=== PATIENT | female | born 1975 | race African-American/Black ===

== ENCOUNTER 2017-10-21 14:08 | Inpatient (IN) | payer SELFPAY ==
[~2017-10-21] VITALS: Ht 320 cm; Wt 44.9 kg
[2017-10-21] MEDS ORDERED: ONDANSETRON HCL 4MG/2ML VIAL IV STA (14:39)
[2017-10-21] MEDS ORDERED: FAMOTIDINE 20MG/2ML VIAL IV STA (14:39)
[2017-10-21] MEDS ORDERED: SODIUM CHLORIDE 0.9% 1,000 ML IV ONE ×2 (14:39→14:45)
[2017-10-21] MEDS ORDERED: LORAZEPAM 2MG/ML CPJ IV ONE (14:45)
[2017-10-21 15:38] LABS: CHLORIDE 100 mEq/L (98-107); HEMATOCRIT. 45.2 % (36.0-48.0); HEMOGLOBIN. 14.8 g/dL (12.0-16.0); MEAN CORPUSCULAR HEMOGLOBIN 36.9 pg (28.0-32.0); MEAN CORPUSCULAR VOLUME 112.6 fL (81.0-99.0); MEAN PLATELET VOLUME 7.7 fl (7.4-10.4); PLATELET 245 x1000/uL (130-400); RED BLOOD CELL COUNT 4.01 mill/uL (4.2-5.4); RED CELL DISTRIBUTION WIDTH 18.3 % (11.6-14.6)
[2017-10-21 15:48] LABS: CARBON DIOXIDE 10 mEq/L (21-32)
[2017-10-21 17:06] LABS: PLATELET ESTIMATE NORMAL
[2017-10-21] MEDS ORDERED: NA PHOS,M-B/NA PHOS,DI-BA ENEMA 118ML PR PRN (19:45)
[2017-10-21] MEDS ORDERED: MAGNESIUM/ALUMINUM HYDROXIDE/SIMETHICONE 30ML UDC PO PRN (19:45)
[2017-10-21] MEDS ORDERED: IPRATROPIUM/ALBUTEROL 0.5-3(2.5)MG/3ML NEB INH PRN (19:45)
[2017-10-21] MEDS ORDERED: GUAIFENESIN 200MG/10ML SUGAR FREE UDC PO PRN (19:45)
[2017-10-21] MEDS ORDERED: ACETAMINOPHEN 325MG TABLET PO PRN (19:45)
[2017-10-21] MEDS ORDERED: ONDANSETRON HCL 4MG/2ML VIAL IV PRN (19:45)
[2017-10-21] MEDS ORDERED: NITROGLYCERIN 0.4MG TABLET SL SL PRN (19:45)
[2017-10-21] MEDS ORDERED: DIPHENHYDRAMINE 50MG/ML VIAL IV PRN (19:45)
[2017-10-21] MEDS ORDERED: DOCUSATE SODIUM 100MG CAPSULE PO PRN (19:45)
[2017-10-21] MEDS ORDERED: CLONIDINE 0.1MG TABLET PO PRN (19:45)
[2017-10-21] MEDS ORDERED: TRAMADOL 50MG TABLET PO PRN (19:45)
[2017-10-21] MEDS ORDERED: LORAZEPAM 0.5MG TABLET PO PRN (20:30)
[2017-10-21] MEDS ORDERED: ZOLPIDEM TARTRATE 5MG TABLET PO PRN (21:00)
[2017-10-21 21:11] LABS: CHLORIDE 107 mEq/L (98-107)
[2017-10-21 21:14] LABS: CLARITY URINE CLEAR (CLEAR); COLOR URINE YELLOW (YELLOW); GLUCOSE URINE NEGATIVE (NEGATIVE); KETONES URINE 4+ (NEGATIVE); LEUKOCYTE ESTERASE URINE NEGATIVE (NEGATIVE); NITRITE URINE NEGATIVE (NEGATIVE); OCCULT BLOOD URINE 2+ (NEGATIVE); PH URINE 5.5 (4.5-8.0); PROTEIN URINE 2+ (NEGATIVE); SPECIFIC GRAVITY URINE 1.019 (1.005-1.030); UROBILINOGEN URINE 0.2 E.U./dL (0.2-1.0)
[2017-10-21] MEDS ORDERED: MVI, ADULT NO.1 10 ML, FOLIC ACID 1 MG, THIAMINE HCL 100 MG in SODIUM CHLORIDE 0.9% 1,0... IV SCH ×4 (21:15)
[2017-10-21 21:19] LABS: CARBON DIOXIDE 12 mEq/L (21-32); ETHANOL BLOOD < 10 mg/dL; HDL CHOLESTEROL 108 mg/dL (40-59); LDL CHOLESTEROL 60 mg/dL (5-100)
[2017-10-21 21:32] LABS: *AMPHETAMINES SCREEN URINE NEGATIVE (NEGATIVE); *BARBITURATES SCREEN URINE NEGATIVE (NEGATIVE); *BENZODIAZEPINES SCREEN URINE NEGATIVE (NEGATIVE); *COCAINE SCREEN URINE NEGATIVE (NEGATIVE); CANNABINOID URINE SCREEN NEGATIVE (NEGATIVE); METHADONE URINE SCREEN NEGATIVE (NEGATIVE); OPIATES URINE SCREEN NEGATIVE (NEGATIVE); PHENCYCLIDINE URINE SCREEN NEGATIVE (NEGATIVE)
[2017-10-22] VITALS (7 sets, daily range): BP systolic 122–135; BP diastolic 80–89
[2017-10-22] MEDS: SODIUM CHLORIDE 0.9% 1,000 ML IV SCH ×2 (05:56→20:01)
[2017-10-22] MEDS: KETOROLAC 15MG/ML VIAL IV PRN (06:14)
[2017-10-22] MEDS: PANTOPRAZOLE SODIUM 40 MG/VIAL IV SCH (09:18)
[2017-10-22] MEDS ORDERED: INFLUENZA VIRUS VACCINE 0.5ML SYR IM ONE (10:00)
[2017-10-22] MEDS ORDERED: PNEUMOCOCCAL 23-VAL P-SAC VAC 0.5 ML IM ONE (11:00)
[2017-10-23] VITALS: BP_SYST 129; BP_SYST 161; BP_DIAS 65; BP_DIAS 82
[2017-10-23 04:00] VITALS: BP 138/77
[2017-10-23 08:00] VITALS: BP 129/89
[2017-10-23] MEDS: SODIUM CHLORIDE 0.9% 1,000 ML IV SCH (08:40)
[2017-10-23] MEDS ORDERED: FOLIC ACID 1MG TABLET PO SCH (09:00)
[2017-10-23] MEDS ORDERED: THIAMINE HCL 100MG TABLET PO SCH (09:00)
[2017-10-23] MEDS: PANTOPRAZOLE SODIUM 40 MG/VIAL IV SCH (10:19)
[2017-10-23] MEDS: KETOROLAC 15MG/ML VIAL IV PRN (10:25)
[2017-10-23 11:18] VITALS: BP 129/88
== END 2017-10-23 12:30 | disposition home or self-care (01) | DRG 282 ==
LOC: ER 14:19 → 6EST 19:18 → ENRESERV 19:44
PROVIDERS: ADMIT Internal Medicine; ATTEND Internal Medicine
DX: K85.20 Alcohol induced acute pancreatitis without necrosis or infection (principal); E87.2 Acidosis; E87.5 Hyperkalemia; F10.10 Alcohol abuse, uncomplicated; Z71.41 Alcohol abuse counseling and surveillance of alcoholic
CPT/HCPCS: 36415; 76705; 80053; 80061; 80305; 81001; 81025; 82607; 82746; 83036; 83690; 85025; 90732; 93970; 96361; 96365; 96366; 96375; 99285; C1893; C9113; G0482; J1885; J2060; J2405; J3411; J3490; J7030